=== PATIENT | female | born 1975 | race African-American/Black ===

== ENCOUNTER 2017-09-21 12:04 | Emergency (ER) | payer MEDICAID ==
[~2017-09-21] VITALS: Ht 167.6 cm; Wt 66.7 kg
[2017-09-21 13:36] LABS: Basophils # (auto) 0 uL; Basophils % (auto) 0.7 % (0.0-2.0); Eosinophils # (auto) 0 uL; Hematocrit 35.2 % (36.0-46.0); Hemoglobin 10.8 g/dL (12.2-16.2); Mean Corpuscular Hemoglobin 20.1 pg (28.0-32.0); Monocytes # (auto) 0.3 uL; Neutrophils # (auto) 2.2 uL; Red Blood Cells 5.38 10^6/uL (4.0-5.20); White Blood Cell 4.3 10^3/uL (4.4-10.8)
[2017-09-21 13:38] LABS: Eosinophils % (auto) 0.4 % (0.0-7.0); Lymphocytes # (auto) 1.8 uL; Lymphocytes % (auto) 41.7 % (10.0-50.0); Mean Corpuscular Hgb Conc. 30.7 g/dL (32.0-36.0); Mean Corpuscular Volume 65.5 fL (80.0-100.0); Monocytes % (auto) 6.9 % (0.0-12.0); Neutrophils % (auto) 50.3 % (37.0-80.0); Nucleated Red Blood Cells % 0.2 %; Platelet Count (auto) 289 10^3/uL (140-450)
[2017-09-21 13:45] LABS: Red Cell Distribution Width 20.5 % (11.8-14.3)
[2017-09-21 13:54] LABS: Alanine Aminotransferase 26 U/L (13-56); Albumin 4.1 g/dL (3.4-5.0); Alkaline Phosphatase 69 U/L (45-117); Anion Gap 10 (5-15); Aspartate Aminotransferase 21 U/L (15-37); BUN/Creatinine Ratio 10.3; Bilirubin, Total 0.9 mg/dL (0.2-1.0); Blood Urea Nitrogen 7 mg/dL (7-18); Calcium 9.2 mg/dL (8.5-10.1); Carbon Dioxide 24 mmol/L (21-32); Chloride 105 mmol/L (98-107); GFR African American 123 mL/min; GFR Non-African American 102 mL/min; Glucose 86 mg/dL (74-106); Potassium 3.2 mmol/L (3.5-5.1); Sodium 139 mmol/L (136-145); Total Protein 8.6 g/dL (6.4-8.2)
[2017-09-21] MEDS ORDERED: SODIUM CHLORIDE 0.9% 1,000 ML IV ONE (14:00)
[2017-09-21] MEDS ORDERED: MECLIZINE HCL 25 MG TAB PO ONE (14:00)
[2017-09-21 14:06] LABS: Urine Bacteria NONE SEEN /hpf (None Seen); Urine Blood Negative /uL (Negative); Urine Mucus FEW (None Seen); Urine Specific Gravity 1.023 (1.001-1.035); Urine WBC <1 /hpf (0 - 5)
[2017-09-21] MEDS ORDERED: POTASSIUM CHL 20 Meq TABLET PO ONE (14:15)
[2017-09-21 14:38] VITALS: BP 141/88
== END 2017-09-21 15:16 | disposition home or self-care (01) ==
LOC: ER 12:04
DX: R42 Dizziness and giddiness (principal); R51 Headache; E87.6 Hypokalemia; R53.1 Weakness
CPT/HCPCS: 36415; 80053; 81001; 84484; 85025; 93005; 96360; 99285; J7030; J8597

== ENCOUNTER 2020-05-06 13:34 | Emergency (ER) | payer MEDICAID ==
[~2020-05-06] VITALS: Ht 165.1 cm; Wt 68.0 kg
[2020-05-06 14:19] LABS: Basophils # (auto) 0 10 ^3/uL (0-0.2); Eosinophils # (auto) 0 10 ^3/uL (0-0.8); Hemoglobin 10.4 g/dL (12.2-16.2); Monocytes # (auto) 0.3 10 ^3/uL (0-1.3); Nucleated Red Blood Cells % 0.1 %; White Blood Cell 3.5 10^3/uL (4.4-10.8)
[2020-05-06 14:20] LABS: Basophils % (auto) 0.9 % (0.0-2.0); Eosinophils % (auto) 1.2 % (0.0-7.0); Hematocrit 34.2 % (36.0-46.0); Lymphocytes # (auto) 1.7 10 ^3/uL (0.4-5.4); Mean Corpuscular Hemoglobin 19.7 pg (28.0-32.0); Mean Corpuscular Hgb Conc. 30.5 g/dL (32.0-36.0); Mean Corpuscular Volume 64.6 fL (80.0-100.0); Neutrophils # (auto) 1.3 10 ^3/uL (1.6-8.6); Neutrophils % (auto) 38.9 % (37.0-80.0); Platelet Count (auto) 393 10^3/uL (140-450)
[2020-05-06 14:23] LABS: Urine Amorphous Crystal MOD /hpf (None Seen); Urine Bacteria FEW /hpf (None Seen); Urine Blood 3+ /uL (Negative); Urine Specific Gravity 1.005 (1.001-1.035); Urine WBC 3 /hpf (0 - 5)
[2020-05-06 14:23] LABS: Red Cell Distribution Width 21.2 % (11.8-14.3)
[2020-05-06 14:33] LABS: Albumin 3.8 g/dL (3.4-5.0); BUN/Creatinine Ratio 12.5; Calcium 8.7 mg/dL (8.5-10.1); Potassium 3.2 mmol/L (3.5-5.1)
[2020-05-06 14:36] LABS: Bilirubin, Total 0.3 mg/dL (0.2-1.0)
[2020-05-06 16:10] VITALS: BP 114/82
[2020-05-06] MEDS ORDERED: POTASSIUM CHL 20 Meq TABLET PO ONE (17:45)
== END 2020-05-06 17:56 | disposition home or self-care (01) ==
LOC: ER 13:34
DX: D25.9 Leiomyoma of uterus, unspecified (principal); D64.9 Anemia, unspecified; E87.6 Hypokalemia
CPT/HCPCS: 36415; 76856; 80053; 81001; 81025; 84702; 85025